=== PATIENT | female | born 1955 | race Caucasian/White ===

== ENCOUNTER → 2019-08-16 | Outpatient (CLI) | payer OTHER ==
[~2019-08-16] MED LIST: LIDOCAINE 2%/EPI 1:100,000 20 ML VIAL. IJ ONE
--- NOTE | 2019-08-16 15:27 | RAD ---
EXAM: 1. Stereotactically guided left breast biopsy. 2. Postbiopsy digital left mammography. HISTORY: Indeterminate left breast calcifications. Biopsy is requested. FINDINGS: The procedure along with its risks and benefits were explained to the patient. She agreed to proceed. A timeout procedure was performed. The left superior breast calcifications were localized stereotactically. The overlying skin was sterilely prepped and infiltrated with 1% lidocaine for local anesthesia. The patient's breast compressed very thin, requiring prefire of the biopsy device and manual advancement to the target. The suction trough was able to be advanced deep to the skin surface. 6 core biopsy specimens were obtained. Specimen radiographs demonstrated perhaps a few small calcifications. Acquisition of additional specimens was attempted, but the suction device failed, and only a small amount of additional tissue could be acquired. As no further sampling was possible, the procedure was terminated. A clip was not placed, as the majority of the calcifications remain. The patient tolerated the procedure very well. The above findings and technical issues were explained and she understood that additional procedures may be required. Digital mammographic images were obtained in CC and MLO projections and interpreted on a dedicated workstation. Postbiopsy changes are noted at the site of the sampled calcifications, which mostly remain. IMPRESSION: 1. Technically limited stereotactic biopsy as above. It is unclear whether the target calcifications were adequately sampled. If pathologic results are not positive, needle localization and excisional biopsy is recommended.
--- NOTE | 2019-08-20 16:06 | PATHOLOGY ---
[facility] Accession Number: [id number] . 01 Material submitted: . breast - LEFT BREAST CALCIFICATIONS. Modifiers: left . 01 Clinical history: . Left breast calcifications . 02 Diagnosis: Breast and fibroadipose tissue, left breast stereotactic needle biopsies: - Focal medial arterial calcification and recent hemorrhage. See comment. . (JPM:[facility] 08/20/2019) P 08/20/2019 0939 Local . 02 Comment: Section A1 reveals predominantly segments of fibroadipose tissue showing foci of recent hemorrhage and medial arterial calcification. There is a small segment of breast tissue containing small ducts showing no significant pathologic abnormalities. . Section A2 predominantly reveals segments of fibroadipose tissue showing focal recent hemorrhage. One of these segments contains a small duct showing no atypia or evidence of malignancy. I am uncertain as to whether or not the mammographic findings are represented in the needle biopsies. Please correlate with mammographic findings. (JPM:[facility] 08/20/2019) . 02 Electronically signed: . Anshu Ashley MD, Pathologist NPI- [id number] . 01 Gross description: . The specimen is received in formalin, labeled "Juanita Oviedo, left breast tissue". Received are two cassettes. The first cassette is designated as "1" and contains multiple needle cores of fibrofatty tissue measuring 2.8 x 2.2 x 0.4 cm in aggregate dimensions. The tissue is transferred to cassette A1. The second cassette is designated as "2" and contains multiple needle cores of fibrofatty tissue admixed with blood coagulum measuring 1.4 x 1.0 x 0.3 cm in aggregate dimensions. The tissue is transferred to cassette A2. The cold ischemic time is 10 minutes. The total formalin fixation time is 31 hours and 10 minutes. ([facility]; 08/17/2019) QAC/QAC 08/17/2019 1558 Local . 02 Pathologist provided ICD-10: N64.59 . 02 CPT . 436714 Specimen Comment: A courtesy copy of this report has been sent to [phone], [phone] Specimen Comment: [id number], Specimen Comment: Report sent to ,DR GAY / DR PEREZ Performed at: [facility] [address], [place] [id number] MD Juan Jose Penn MD Phone: [phone] Performed at: [facility] [address], [place] [id number] MD Anshu Ashley MD Phone: [phone]
== END ==
LOC: MAMMO 12:46
PROVIDERS: ATTEND Surgery
DX: R92.0 Mammographic microcalcification found on diagnostic imaging of breast (principal)
CPT/HCPCS: 19081; 77022; 77065; 88305; J3490; 19085